=== PATIENT | male | born 1975 | race Caucasian/White ===

== ENCOUNTER 2024-04-28 | Emergency (ER) | payer OTHER, SELFPAY ==
[2024-04-28 00:02] VITALS: BP 166/90
[2024-04-28 00:42] VITALS: BP 183/104
--- NOTE | 2024-04-28 00:50 | ED.GENMED ---
History of Present Illness
General
Chief Complaint: Alcohol Problem
Source: patient
Exam Limitations: none
Time Seen by Provider: 04/28/24 00:37
Nursing documentation reviewed up to this point in time: agreed with
History of Present Illness
History of Present Illness:
This is a 48-year-old gentleman with history of generalized anxiety disorder, alcohol dependence, hypertension, GERD, fatty liver. Chronically maintained on sertraline 50 mg daily.
He presents to the ED via EMS tonight with complaints of palpitations, feeling that his heart was beating rapidly and states his blood pressure was quite elevated 200-220 systolic along with rapid heart rate in the 150s. He denies chest pain, no
dizziness nor lightheadedness but did have brief headache which has since resolved. No nausea nor vomiting, no cough no shortness of breath. No history of similar episodes in the past.
Symptoms markedly improved upon arrival to the ED.
He admits to drinking alcohol earlier in the evening and then smoking marijuana which is unusual for him and then drinking more alcohol upon returning home.
He does admit to moderate alcohol consumption several days per week but denies daily alcohol use. Admits to rare marijuana use. Denies other drug use.
Denies recent travel, no leg pain or swelling.
Upon review of external records, prior PCP was Dr. Temo vzicaino and on several office visits including September 2022, patient was urged to curb his alcohol consumption, recommended mental health treatment for alcohol use disorder.
Also noted to have hypertension, whitecoat syndrome. Not prescribed antihypertensive medications.
His PCP has since retired, he has an initial appointment with new PCP scheduled June 05.
His only daily medication is sertraline 50 mg.
He has a family history of CAD reporting his father suffered an DE at age 55.
Past History
Past History
ED Past Medical History: GERD, HTN, Psychiatric (Generalized anxiety disorder) and Other (Fatty liver, alcohol dependence)
ED Past Surgical History: None
Social History
Tobacco: Non-smoker
Alcohol: Binge drinker
Drug: Marijuana
Personal:
Living: with family
Employment: Employed
Family History
Family History: CAD (Father with history of DE at age 55)
Phy Exam
Physical Exam
Physical Exam:
GENERAL: 48-year-old gentleman appears somewhat older than stated age, awake and alert, somewhat anxious, quite chatty with mildly pressured speech.
EYE: pupils equal and reactive. anicteric
NECK: Supple, nontender, no meningismus, no significant adenopathy.
ENT: posterior pharynx is clear, oral mucosa is moist. TM clear b/l, nares patent.
CARDIAC: Regular rate and rhythm. no murmur.
LUNGS: Clear breath sounds bilaterally, no acute respiratory distress, no wheezes/rales/rhonchi
ABDOMEN: Rotund, soft, nondistended, without focal tenderness, no r/g, no cvat. normoactive BS.
NEUROLOGICAL: Alert and oriented x3, no focal neuro deficits. Gait is steady.
SKIN: Warm and dry, normal color, skin intact. No rash.
MUSCULOSKELETAL: No C/C/E. peripheral pulses are full and equal b/l. No palpable tenderness.
PSYCH: Mildly anxious.
Scores
Withdrawal Assessment of Alcohol
Withdrawal Assessment Completed?: Yes
Nausea and Vomiting: No nausea and no vomiting
Tactile Disturbances: None
Tremor: No tremor
Auditory Disturbances: Not present
Paroxysmal Sweats: No sweat visible
Visual Disturbances: Not present
Anxiety: Mild anxiety
Headache, Fullness in Head: Not present
Agitation: Normal activity
Orientation and clouding of sensorium: Oriented and can do serial additions
Total CIWA Score: 1
Alcohol Withdrawal Medication Recommendation: Equal to MSAS Score 0-4. Monitor & re-assess q2hrs, NO MEDICATION NEEDED
Course
Orders/Labs/Results
Orders:
Orders
04/28/24 00:08
EKG [Electrocardiogram (*1)] Urgent
Reason for Study: Palpitations
04/28/24 00:09
EKG- Treatment ONCE
04/28/24 00:50
Cardiac Monitoring- Treatment ONCE
04/28/24 00:55
Alcohol Urgent
Complete Blood Count/With Diff Urgent
Comprehensive Metabolic Panel Urgent
TSH Reflex To Free T4 Urgent
Troponin I Urgent
04/28/24 01:01
Urine Drug Abuse Screen Urgent
Date Specimen was Collected: 04/28/24
Time Specimen was Collected: 01:01
Abnormal Lab Results
04/28/24
00:55
MCV 78.9 L fL
(80.0-94.0)
Glucose 122 H mg/dl
(70-99)
04/28/24 00:55
04/28/24 00:55
Vital Signs
Initial and Last Documented VS:
Initial Vital Signs
Temp Pulse Resp BP Pulse Ox
98.9 F 104 18 166/90 98
04/28/24 00:02 04/28/24 00:02 04/28/24 00:02 04/28/24 00:02 04/28/24 00:02
Last Documented Vital Signs
Temp Pulse Resp BP Pulse Ox
98.9 F 93 21 183/104 97
04/28/24 00:02 04/28/24 01:30 04/28/24 01:30 04/28/24 00:42 04/28/24 00:45
MDM/Problems Addressed
Differential Diagnosis Includes:
Concern for tacky arrhythmia, concern for exacerbation of alcohol use disorder, electrolyte abnormality, concern for adverse reaction to THC with exacerbation of anxiety, concern for other recreational drug use, concern for thyroid disorder, less
likely anemia, other consideration is ACS.
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 Currently showing normal sinus rhythm in the 90s.
Moderate hypertension noted, improving. Patient does have history of hypertension, reported history of white-coat syndrome.
Will check labs including TSH, ACS, EtOH and will check UDS.
EKG shows normal sinus rhythm, normal axis, normal intervals, no acute ST-T wave abnormalities. Unchanged from previous September 2022 save for heart rate has increased from 60 to now 93.
Chronic conditions affecting care: HTN and Psychiatric illness
*Pulse Oximetry
Patient hypoxic: no
*EKG
Interpreted by ED Provider?: Yes
Comparison EKG: no changes (Unchanged from previous September 2022 save for heart rate has increased from 60 to now 93)
Rate: normal
Rhythm: sinus
[place]: normal axis
Interval: normal interval
QRS Pattern: normal QRS
Ischemia: no ischemia
*Coffee Machine Technician Interpretation
Rate: normal
Interpretation: normal
Rhythm: sinus
*Critical Care Note
Total Time (30-74mins, 75-104mins- exclusive of procedures): Not Applicable
Update Note
Update Note:
01:55
Patient is quite eager to be discharged to home. He is demanding that his IV be removed.
Nursing staff concerned that urine sample provided was actually toilet water as urine sample provided appeared to be water in consistency.
He remains hemodynamically stable, monitor continues to show normal sinus rhythm.
He remains moderately hypertensive but denies chest pain, no headache, awake and alert, ambulatory about exam room with steady unaided gait.
Labs are remarkable for alcohol level of 185. Troponin is negative. TSH is pending. UDS is negative which is not consistent with recent reported marijuana use.
Encouraged that he discontinue alcohol consumption, discontinue marijuana use and otherwise prompt follow-up with PCP for recheck.
Patient will be discharged to home once he secures reliable transportation.
He does reside at home with his . Recommend he call her versus another family member or friend. He will not be allowed to walk home.
ED Attending Note
-
Portions of this chart may have been created with voice recognition software.� Occasional wrong word or��sound alike� substitutions may have occurred due to the inherent limitations of voice recognition software.
Discharge Plan
Departure
Patient Disposition: Home (Routine Discharge)
Date of Disposition: 04/28/24
Time of Disposition: 01:57
Patient with high blood pressure during this ER visit?: Yes
Condition: Good
Discharge Problem:
Heart palpitations, Panic attack, Alcohol use disorder, Accelerated hypertension
Instructions: High blood pressure in adults, Alcohol Use Disorder (DC), DASH diet
Referrals:
Melissa Hussein MD [Family Provider] - Call in 1-3 days for appt
Interventions
Interventions:
*Risk Screen - Suicide Last Done: 04/28/24 00:02
*General Assessment Last Done: 04/28/24 01:47
*ED- Fall Risk Assessment Last Done: 04/28/24 01:47
*ED COVID-19 Vaccine History Last Done: 04/28/24 01:47
ED- Neurological Assessment Last Done: 04/28/24 00:40
ED-Psychological Assessment Last Done: 04/28/24 01:47
Discharge Date and Time
Print Language: PORTUGUESE
[2024-04-28 01:02] LABS: % Basophils 0.8 % (0-2); % Eosinophils 1.5 % (0-6); % Immature Granulocytes 0.5 % (0-0.5); % Lymphocytes 21.2 % (20.5-51.1); % Monocytes 7.8 % (1.7-9.3); % Neutrophils 68.2 % (42.2-75.2); Absolute Basophils 0.1 10^3/uL (0-0.2); Absolute Eosinophils 0.1 10^3/uL (0-0.7); Absolute Lymphocytes 1.4 10^3/uL (1.2-3.4); Absolute Monocytes 0.5 10^3/uL (0.1-0.6); Absolute Neutrophils 4.4 10^3/uL (1.4-6.5); Hematocrit 40.4 % (39.0-52.0); Hemoglobin 14.2 g/dL (13.0-18.0); Mean Corp Hgb Conc. 35.1 g/dL (33.0-37.0); Mean Corpuscular Hgb 27.7 pg (27.0-31.0); Mean Corpuscular Volume 78.9 fL (80.0-94.0); Mean Platelet Volume 9.6 fL (7.4-10.4); Nucleated Red Blood Cells % 0 % (-); Platelet Count 216 10^3/uL (130-400); Red Blood Cell Count 5.12 10^6/uL (4.70-6.10); Red Cell Dist. Width 12.9 % (11.5-14.5); White Blood Cell Count 6.5 10^3/uL (4.8-10.8)
[2024-04-28 01:27] LABS: ALT (SGPT) 37 U/L (0-50); AST (SGOT) 30 U/L (17-59); Albumin 4.5 g/dl (3.5-5.0); Alcohol 185 mg/dl; Alkaline Phosphatase 68 U/L (38-126); Blood Urea Nitrogen 14 mg/dl (9-20); Calcium 9.2 mg/dl (8.4-10.2); Carbon Dioxide 25 mmol/L (22-30); Chloride 102 mmol/L (98-107); Glucose 122 mg/dl (70-99); Sodium 138 mmol/L (135-145); Total Bilirubin 0.4 mg/dl (0.2-1.3); Total Protein 7.2 g/dl (6.3-8.2); eGFR > 60.00
[2024-04-28 01:30] LABS: Amphetamines Negative (Negative); Barbiturates Negative (Negative); Benzodiazepines Negative (Negative); Buprenorphine Negative (Negative); Cocaine Negative (Negative); Marijuana Negative (Negative); Methadone Negative (Negative); Methamphetamines Negative (Negative); Opiates Negative (Negative); Phencyclidine Negative (Negative); Tricyclic Antidepressants Negative (Negative)
[2024-04-28 01:31] LABS: Troponin I < 0.012 ng/ml
[2024-04-28 02:53] LABS: TSH Reflex To Free T4 1.61 uIU/ml (0.47-4.68)
== END 2024-04-28 02:38 | disposition home or self-care (01) ==
LOC: EMR
PROVIDERS: EMERGENCY PHYSICIAN Emergency Medicine; FAMILY PHYSICIAN Family Medicine
DX: R00.2 Palpitations (principal); F41.0 Panic disorder [episodic paroxysmal anxiety]; F10.10 Alcohol abuse, uncomplicated; I10 Essential (primary) hypertension; K21.9 Gastro-esophageal reflux disease without esophagitis; K76.0 Fatty (change of) liver, not elsewhere classified; Z79.899 Other long term (current) drug therapy; Z82.49 Family history of ischemic heart disease and other diseases of the circulatory system
CPT/HCPCS: 99283; 80053; 80306; 82077; 84443; 84484; 85025; 93005

== ENCOUNTER → 2024-11-12 13:08 | Outpatient (REF) | payer OTHER, SELFPAY | LOC: RAD 13:08 | PROVIDERS: ATTENDING PHYSICIAN Surgery; FAMILY PHYSICIAN Family Medicine | DX: R31.29 Other microscopic hematuria (principal); N45.1 Epididymitis | CPT/HCPCS: 76770; 76870; 93976 ==

== ENCOUNTER 2024-12-28 18:37 | Emergency (ER) | payer OTHER, SELFPAY ==
[2024-12-28 18:43] VITALS: BP 218/112
[2024-12-28 19:13] LABS: Hematocrit 46.3 % (39.0-52.0); Hemoglobin 15.8 g/dL (13.0-18.0); Mean Corp Hgb Conc. 34.1 g/dL (33.0-37.0); Mean Corpuscular Volume 80.5 fL (80.0-94.0); Nucleated Red Blood Cells % 0 % (-); Platelet Count 244 10^3/uL (130-400); Red Cell Dist. Width 12.3 % (11.5-14.5)
[2024-12-28 19:21] LABS: ALT (SGPT) 36 U/L (0-50); AST (SGOT) 30 U/L (17-59); Albumin 5.1 g/dl (3.5-5.0); Alkaline Phosphatase 76 U/L (38-126); Blood Urea Nitrogen 14 mg/dl (9-20); Calcium 8.9 mg/dl (8.4-10.2); Carbon Dioxide 27 mmol/L (22-30); Chloride 100 mmol/L (98-107); Glucose 114 mg/dl (70-99); Potassium 4.6 mmol/L (3.5-5.1); Sodium 138 mmol/L (135-145); Total Protein 8.2 g/dl (6.3-8.2); eGFR > 60.00
[2024-12-28 21:05] VITALS: BP 168/98
--- NOTE | 2024-12-28 21:14 | ED.GENMED ---
History of Present Illness
General
Chief Complaint: Blood Pressure Problem
Source: patient
Exam Limitations: none
Time Seen by Provider: 12/28/24 21:13
History of Present Illness
History of Present Illness:
49yoM with a history of anxiety presenting for evaluation of elevated blood pressure. Patient typically checks his blood pressure daily and it is always normal. Blood pressure was 117/85 yesterday when checked. His blood pressure was elevated at
163/140 today. He rechecked it and it was still high. He states he started to have a panic attack and was 'spiraling out of control.' He decided to come to the ED for evaluation. He drank alcohol last night and was hung over this morning. He is
currently feeling much better and is requesting to be discharged so he can go home and rest. He denies any headache, visual changes, chest pain, shortness of breath. His PCP prescribes him metoprolol which is prescribed daily although he does not
take this. He took 1 dose of metoprolol for the first time this evening after his elevated blood pressure reading.
Past History
Past History
ED Past Medical History: GERD, HTN, Psychiatric (Generalized anxiety disorder) and Other (Fatty liver, alcohol dependence)
ED Past Surgical History: None
Social History
Tobacco: Non-smoker
Alcohol: Binge drinker
Drug: Marijuana
Personal:
Living: with family
Employment: Employed
Family History
Family History: CAD (Father with history of AR at age 55)
Phy Exam
General Physical Exam
General Presentation: well appearing and no apparent distress
General Skin: warm and dry
General Habitus: normal
General Mental: alert
ENT Exam
ENT Exam: normocephalic
Cardiovascular Exam
Cardiovascular Exam: regular rate/rhythm, no edema and no murmur
Pulmonary Exam
Pulmonary Exam: lungs clear, no respiratory distress, no rales, no crackles, no rhonchi and no wheezing
Neurological Exam
Neurological Exam: alert
[place] Coma Scale
Eye Opening: Spontaneous
Verbal Response: Oriented
Motor Response: Obeys Commands
GCS Total Score: 15
Skin Exam
Skin Exam: normal color and warm/dry
Psychiatric Exam
Psychiatric Exam: normal mood/affect
Course
Orders/Labs/Results
Orders:
Orders
12/28/24 18:48
Electrocardiogram (*1) Urgent
Reason for Study: Abdominal Pain
EKG- Treatment ONCE
12/28/24 18:52
Complete Blood Count/With Diff Urgent
Comprehensive Metabolic Panel Urgent
Abnormal Lab Results
12/28/24
18:52
Abs Immat Gran (auto) 0.1 H 10^3/uL
(0-0.05)
Absolute Monos (auto) 0.7 H 10^3/uL
(0.1-0.6)
Immature Gran % 0.6 H %
(0-0.5)
Glucose 114 H mg/dl
(70-99)
Albumin 5.1 H g/dl
(3.5-5.0)
12/28/24 18:52
12/28/24 18:52
Vital Signs
Initial and Last Documented VS:
Initial Vital Signs
Temp Pulse Resp BP Pulse Ox
98.1 F 75 20 218/112 97
12/28/24 18:43 12/28/24 18:43 12/28/24 18:43 12/28/24 18:43 12/28/24 18:43
Last Documented Vital Signs
Temp Pulse Resp BP Pulse Ox
98.1 F 86 18 168/98 98
12/28/24 18:43 12/28/24 21:05 12/28/24 21:05 12/28/24 21:05 12/28/24 21:15
MDM/Problems Addressed
Differential Diagnosis Includes:
49yoM here for an elevated BP reading at home. Started to have a panic attack due to the high reading and came to the ED. Now feeling much better. Denies CP/SOB. No headache. BP elevated at 218/112 in triage which improved to 168/98 prior to initial
exam. Exam reassuring and he is extremely well appearing. Differential diagnosis includes: panic attack, hypertensive urgency
Workup initiated in triage. EKG shows NSR without ischemic changes. Renal function normal, no evidence of end organ dysfunction. Patient stable for discharge. He was advised to f/u with his PCP and ED return precautions reviewed.
*Pulse Oximetry
SaO2: 98
Oxygen Mode of Delivery: Room air
Patient hypoxic: no
*EKG
Interpreted by ED Provider?: Yes
EKG Intrepretation Date: 12/28/24
Heart Rate: 91
Rate: normal
Rhythm: sinus
[place]: normal axis
Interval: normal interval
QRS Pattern: normal QRS
Ischemia: no ischemia
*Critical Care Note
Total Time (30-74mins, 75-104mins- exclusive of procedures): Not Applicable
ED Attending Note
-
Portions of this chart may have been created with voice recognition software.� Occasional wrong word or��sound alike� substitutions may have occurred due to the inherent limitations of voice recognition software.
Discharge Plan
Departure
Patient Disposition: Home (Routine Discharge)
Date of Disposition: 12/28/24
Time of Disposition: 21:26
Patient with high blood pressure during this ER visit?: Yes
Discharge Problem:
Elevated blood pressure reading
Instructions: High Blood Pressure (DC)
Activity Restrictions/Additional Instructions:
Please follow-up with your family doctor on Tuesday. Return to the ER with any new or worsening symptoms including severe headache, chest pain, or stroke-like symptoms.
Interventions
Interventions:
*Risk Screen - Suicide Last Done: 12/28/24 18:43
*General Assessment Last Done: 12/28/24 18:43
*Neglect/Abuse Screening Last Done: 12/28/24 18:43
*ED- Fall Risk Assessment Last Done: 12/28/24 21:14
*ED COVID-19 Vaccine History Last Done: 12/28/24 21:14
*ED Influenza Vaccine History Last Done: 12/28/24 21:14
*Nursing Disposition Last Done: 12/28/24 21:41
ED- Cardiac Assessment Last Done: 12/28/24 21:13
ED- Neurological Assessment Last Done: 12/28/24 21:13
ED- Pulmonary Assessment Last Done: 12/28/24 21:13
Discharge Date and Time
Discharge Date/Time: 12/28/24 21:41
Print Language: SERBIAN
== END 2024-12-28 21:41 | disposition home or self-care (01) ==
LOC: EMR 18:37
PROVIDERS: Student in an Organized Health Care Education/Training Program; EMERGENCY PHYSICIAN Emergency Medicine
DX: I10 Essential (primary) hypertension (principal); K21.9 Gastro-esophageal reflux disease without esophagitis; K76.0 Fatty (change of) liver, not elsewhere classified; F10.20 Alcohol dependence, uncomplicated; F41.1 Generalized anxiety disorder; T44.7X6A Underdosing of beta-adrenoreceptor antagonists, initial encounter; Z91.148 Patient's other noncompliance with medication regimen for other reason; Z82.49 Family history of ischemic heart disease and other diseases of the circulatory system
CPT/HCPCS: 99284; 80053; 85025; 93005